=== PATIENT | female | born 1950 | race Caucasian/White ===

== ENCOUNTER → 2018-08-20 | Outpatient (CLI) | payer MEDICARE, OTHER ==
--- NOTE | 2018-08-21 12:22 | KCIC ---
Bilateral digital screening mammograms with 3-D tomosynthesis: Reason for examination: Routine screening. Comparison is made to previous study dated 04/22/2009. Bilateral mammograms in CC and oblique projections were obtained with 2-D imaging and 3-D tomosynthesis imaging on a Siemens Inspiration unit and reviewed on the workstation. Interpretation was made with the benefit of CAD. The skin and nipples show no abnormalities. No abnormal axillary lymph nodes are seen. The breast parenchyma shows scattered fatty and fibroglandular density. (Breast density: Category B.) There continue to be nodular parenchymal densities in the upper outer quadrant of the left breast posteriorly which are stable. There are no new dominant masses, suspicious calcifications or architectural distortion. Impression: No evidence of malignancy. Recommend routine screening. BI-RAD Category 2: Benign. "Our facility is accredited by the [employer] Mammography Program." This patient's information has been entered into a reminder system for the patient to be notified with the results of her examination and a target date for the next mammogram. Electronically signed by: Elsa Rahman MD (08/21/2018 12:19 PM) [id number]
== END | disposition home or self-care (01) ==
LOC: KCIC MAMMO 13:38
PROVIDERS: ATTEND Family Medicine
DX: Z12.31 Encounter for screening mammogram for malignant neoplasm of breast (principal)
CPT/HCPCS: 77063; 77067

== ENCOUNTER → 2020-10-31 | Outpatient (CLI) | payer MEDICARE, OTHER ==
--- NOTE | 2020-10-31 18:09 | KCIC ---
2-D and 3-D, digital tomography, Mammogram Bilateral History: Routine screening Technique: Bilateral 2-D and 3d digital tomographic views were obtained. CAD - computer aided dete ction was utilized. Comparison: None. Findings: Breast Tissue Density B : There are scattered areas of fibroglandular density There are no suspicious masses, malignant appearing calcifications, or areas of architectural distort ion. There is a unchanged oval gently lobulated circumscribed mass in the 3:00 position of the left b reast at posterior depth. There are unchanged tiny benign oval circumscribed masses in both breasts. Impression: No evidence of malignancy. Assessment: BI-RADS 2. Benign findings. Recommendation: Routine screening mammograms. The patient will receive a letter with the results in the mail. Patient information will be entered i nto the mammography reminder system with a target recall date for the next mammogram. A reminder mundo er will be generated. Electronically signed by: Marcia Villa MD (10/31/2020 6:07 PM) [email or web address]
== END ==
LOC: KCIC MAMMO 12:49
PROVIDERS: ATTEND Family Medicine
DX: Z12.31 Encounter for screening mammogram for malignant neoplasm of breast (principal)
CPT/HCPCS: 77063; 77067